=== PATIENT | male | born 1950 | race Native Hawaiian/Other Pacific Islander ===

== ENCOUNTER 2017-03-06 15:51 | Outpatient (CLI) | payer OTHER, MEDICARE ==
[2017-03-06 16:31] LABS: PLATELET COUNT 176 K/uL (142-355)
[2017-03-06 16:43] LABS: POTASSIUM 3.8 mmol/L (3.6-5.2)
== END 2017-03-06 20:29 | disposition home or self-care (01) ==
LOC: LABW 15:51
PROVIDERS: Family Medicine
DX: M79.671 Pain in right foot (principal); M79.89 Other specified soft tissue disorders; I71.4 Abdominal aortic aneurysm, without rupture; E86.0 Dehydration
CPT/HCPCS: 36415; 80053; 84550; 85027; 85651; 96366; 96374; 96375; J1885; J2930

== ENCOUNTER 2017-04-28 12:05 | Outpatient (CLI) | payer OTHER, MEDICARE | END 2017-04-28 19:43 | disposition home or self-care (01) | LOC: LABW 12:05 | DX: I71.4 Abdominal aortic aneurysm, without rupture (principal); K21.9 Gastro-esophageal reflux disease without esophagitis; R10.13 Epigastric pain; N39.0 Urinary tract infection, site not specified | CPT/HCPCS: 81000; 87086; 87088 ==

== ENCOUNTER 2017-05-26 06:28 | Outpatient (CLI) | payer OTHER, MEDICARE ==
[2017-05-26 06:56] LABS: PLATELET COUNT 244 K/uL (142-355)
[2017-05-26 07:04] LABS: POTASSIUM 4.2 mmol/L (3.6-5.2)
== END 2017-05-26 07:30 | disposition home or self-care (01) ==
LOC: LABW 06:28
PROVIDERS: Internal Medicine Nephrology
DX: N18.3 Chronic kidney disease, stage 3 (moderate) (principal)
CPT/HCPCS: 36415; 80053; 81000; 82570; 83970; 84100; 84155; 85027

== ENCOUNTER 2017-06-24 10:16 | Outpatient (CLI) | payer OTHER, MEDICARE | END 2017-06-24 11:20 | disposition home or self-care (01) | LOC: LAB 10:16 | PROVIDERS: Internal Medicine | DX: E78.00 Pure hypercholesterolemia, unspecified (principal); Z12.5 Encounter for screening for malignant neoplasm of prostate | CPT/HCPCS: 80061; 84153 ==

== ENCOUNTER 2018-01-11 14:56 | Outpatient (CLI) | payer OTHER, MEDICARE | END 2018-01-11 23:18 | disposition home or self-care (01) | LOC: CT 14:56 | DX: K43.2 Incisional hernia without obstruction or gangrene (principal) | CPT/HCPCS: 36415; 82565; 84520 ==

== ENCOUNTER 2018-04-26 06:04 | Outpatient (CLI) | payer OTHER, MEDICARE ==
[2018-04-26 06:24] LABS: PLATELET COUNT 179 K/uL (142-355)
[2018-04-26 06:36] LABS: POTASSIUM 4.3 mmol/L (3.6-5.2)
== END 2018-04-26 22:36 | disposition home or self-care (01) ==
LOC: LABW 06:04
PROVIDERS: Internal Medicine
DX: I10 Essential (primary) hypertension (principal)
CPT/HCPCS: 36415; 80053; 80061; 81000; 84443; 85027

== ENCOUNTER 2018-04-28 10:29 | Outpatient (CLI) | payer OTHER, MEDICARE | END 2018-04-28 20:08 | disposition home or self-care (01) | LOC: US 10:29 | DX: R09.89 Other specified symptoms and signs involving the circulatory and respiratory systems (principal) ==

== ENCOUNTER 2018-06-01 12:29 | Outpatient (CLI) | payer OTHER, MEDICARE ==
[2018-06-01 12:49] LABS: PLATELET COUNT 160 K/uL (142-355)
[2018-06-01 13:11] LABS: PARTIAL THROMBOPLASTIN TIME 29.1 SECONDS (24.5-33.6)
== END 2018-06-01 19:37 | disposition home or self-care (01) ==
LOC: LABW 12:29
PROVIDERS: Surgery
DX: I65.23 Occlusion and stenosis of bilateral carotid arteries (principal); Z01.810 Encounter for preprocedural cardiovascular examination; Z01.812 Encounter for preprocedural laboratory examination
CPT/HCPCS: 36415; 80048; 85027; 85610; 85730; 93005

== ENCOUNTER 2018-08-23 07:03 | Outpatient (CLI) | payer OTHER, MEDICARE ==
[2018-08-23 07:16] LABS: PLATELET COUNT 152 K/uL (142-355)
[2018-08-23 07:35] LABS: POTASSIUM 4.1 mmol/L (3.6-5.2)
== END 2018-08-23 19:10 | disposition home or self-care (01) ==
LOC: LABW 07:03
PROVIDERS: Surgery
DX: I65.23 Occlusion and stenosis of bilateral carotid arteries (principal)
CPT/HCPCS: 36415; 80048; 85027

== ENCOUNTER 2019-02-17 05:31 | Outpatient (CLI) | payer OTHER, MEDICARE ==
[2019-02-17 06:06] LABS: PLATELET COUNT 183 K/uL (142-355)
[2019-02-17 06:41] LABS: POTASSIUM 4.4 mmol/L (3.6-5.2)
== END 2019-02-17 23:34 | disposition home or self-care (01) ==
LOC: LABW 05:31
PROVIDERS: Internal Medicine
DX: I65.23 Occlusion and stenosis of bilateral carotid arteries (principal); I10 Essential (primary) hypertension
CPT/HCPCS: 36415; 80053; 80061; 81000; 84439; 84443; 85027

== ENCOUNTER 2019-10-17 07:38 | Outpatient (CLI) | payer OTHER, MEDICARE ==
[2019-10-17 07:53] LABS: PLATELET COUNT 141 K/uL (142-355)
[2019-10-17 07:55] LABS: POTASSIUM 4.5 mmol/L (3.6-5.2)
== END 2019-10-17 19:09 | disposition home or self-care (01) ==
LOC: LABW 07:38
PROVIDERS: Surgery
DX: Z01.810 Encounter for preprocedural cardiovascular examination (principal); Z01.811 Encounter for preprocedural respiratory examination; Z01.812 Encounter for preprocedural laboratory examination
CPT/HCPCS: 36415; 80048; 85027

== ENCOUNTER 2019-11-27 05:40 | Outpatient (CLI) | payer OTHER, MEDICARE ==
[2019-11-27 06:29] LABS: PLATELET COUNT 153 K/uL (142-355)
== END 2019-11-27 19:39 | disposition home or self-care (01) ==
LOC: LABW 05:40
PROVIDERS: Internal Medicine
DX: I10 Essential (primary) hypertension (principal)
CPT/HCPCS: 36415; 80053; 80061; 81000; 84439; 84443; 85027

== ENCOUNTER 2020-09-05 08:26 | Outpatient (CLI) | payer OTHER, MEDICARE ==
[2020-09-05 08:40] LABS: PLATELET COUNT 144 K/uL (142-355)
[2020-09-05 09:00] LABS: POTASSIUM 4.3 mmol/L (3.6-5.2)
== END 2020-09-05 20:03 | disposition home or self-care (01) ==
LOC: LABW 08:26
PROVIDERS: ATTEND Internal Medicine
DX: I10 Essential (primary) hypertension (principal)
CPT/HCPCS: 36415; 80053; 80061; 81000; 84439; 84443; 85027

== ENCOUNTER 2020-09-13 07:41 | Outpatient (CLI) | payer OTHER, MEDICARE | END 2020-09-13 21:10 | disposition home or self-care (01) | LOC: US 07:41 | PROVIDERS: ATTEND Internal Medicine | DX: I71.4 Abdominal aortic aneurysm, without rupture (principal) ==

== ENCOUNTER 2021-02-14 07:13 | Outpatient (CLI) | payer OTHER, MEDICARE | END 2021-02-14 19:54 | disposition home or self-care (01) | LOC: LABW 07:13 | PROVIDERS: ATTEND Nurse Practitioner Family | DX: L43.2 Lichenoid drug reaction (principal); R21 Rash and other nonspecific skin eruption | CPT/HCPCS: 36415; 86038; 86235 ==

== ENCOUNTER 2021-02-19 09:22 | Outpatient (CLI) | payer OTHER, MEDICARE | END 2021-02-19 18:57 | disposition home or self-care (01) | LOC: LAB 09:22 | PROVIDERS: ATTEND Internal Medicine | DX: U07.1 COVID-19 (principal); Z20.822 Contact with and (suspected) exposure to COVID-19 | CPT/HCPCS: 87635; G2023; U0003 ==

== ENCOUNTER 2021-02-25 13:19 | Inpatient (IN) | payer OTHER, MEDICARE ==
[~2021-02-25] VITALS: Ht 167.6 cm; Wt 83.1 kg
[2021-02-25 14:54] VITALS: BP 111/74; TEMP 99; Ht 167.6 cm; Wt 83.1 kg
--- NOTE | 2021-02-25 15:19 | NUR ---
@ 1445 PT ADMITTED TO COVID UNIT. PT ALERT AND AWAKE. ORIENTED X 4. NO ACUTE DISTRESS NOTED. PT'S SATS ON RA 82% WITH O2 @ 3-4L VIA N/C SATS UP TO 90-91%. IV SITE STARTED X 1 ATTEMPY. 20 GUAGE JELCO TO RIGHT AC. POSITIVE BLOOD RETURN. SALINE LOCKED. PT BEING ADMITTED DUE TO INABILITY TO RECEIVE OUTPATIENT INFUSION BECAUSE PT IS REQUIRING O2.
[2021-02-25 16:00] VITALS: BP 159/83; TEMP 98.5
[2021-02-25] MEDS ORDERED: LISI20TA11 PO (17:46)
[2021-02-25] MEDS ORDERED: EZALLOR SPRINKL10 MG PO (17:49)
[2021-02-25] MEDS ORDERED: HYDROCHLOROT12.5 M1 PO (17:50)
[2021-02-25] MEDS ORDERED: CILOSTAZOL PO (17:55)
--- NOTE | 2021-02-25 17:56 | NUR ---
PT TRANSPORTED TO MED-SURG FLOOR AT 1715. PT DIRECT ADMIT FROM INFUSION. PT A&O X4. NAD NOTED. O2 VIA NC @3LPM, SAME PT ON IN INFUSION CLINIIC. AWAITING ADMISSION ORDERS FROM HCP, HCP NOTIFIED AT 1745.
--- NOTE | 2021-02-25 18:57 | NUR ---
PT SITTING ON THE SIDE OF BED EATING DINNER. O2 INTACT AT 3LPM VIA NC. NAD NOTED. PT DENIES ANY PAIN OR DISCOMFORT. PT STATED "IF THE DOCTOR DON'T START ME ON SOME MEDICINE SOON, I'M GOING HOME." SPOKE WITH HCP AND ORDERS ARE CURRENTLY IN PROGRESS.
[2021-02-25 19:26] LABS: PLATELET COUNT 114 K/uL (142-355)
[2021-02-25 20:00] VITALS: BP 179/83; TEMP 98.1
[2021-02-25 20:09] LABS: POTASSIUM 4.4 mmol/L (3.6-5.2)
--- NOTE | 2021-02-25 20:30 | NUR ---
IN PT'S ROOM TO CHECK ON HIM. PT'S O2 77% ON 4 LITERS OF NASAL CANNULA AT THIS TIME. TURNED PT'S O2 UP TO 6 LITERS AND CALLED RESPIRATORY THERAPY FROM PT'S ROOM. RESPIRATORY THERAPIST ARRIVED SHORTLY AND PLACED PT ON 100% NON-REBREATHER MASK. PT'S SATS WENT UP TO HIGH 80'S TO LOW 90'S. PATIENT PLACED ON CONTINOUS O2 MONITOR AND TELE. WILL CONTINUE TO MONITOR. NAD NOTED AT THIS TIME.
[2021-02-26] VITALS (14 sets, daily range): BP systolic 107–180; BP diastolic 60–84; TEMP 99.2–101.6
--- NOTE | 2021-02-26 02:02 | NUR ---
PT WAS PLACEAD ON HF60L AND 100% FIO2 TO KEEP SPO2 UP AND TO HELP BREATHING. AFTER BEING ON HF FOR ABOUT 20 MINUTES PT SPO2 INCREASED BUT HIS WORK OF BREATHING WS THE SAME. SPOKE WITH ER DR. PENDLETON AND PT WILL BE MOVED TO PCU AND PLACED ON BIPAP.
--- NOTE | 2021-02-26 02:10 | NUR ---
SPOKE WITH RESPIRATORY THERAPISTS. PT IS NOW ON HF60L AT 100% AND STILL IS STRUGGLING TO BREATHE. PT'S SATS ARE IN THE HIGH 80'S. PT IS DIAPHORETIC AND HIS FACE IS VISIBLY FLUSHED. RESP THERAPISTS RECOMMENDS BI-PAP AT THIS TIME AND IS GOING TO SPEAK WITH THE ER DOCTOR ABOUT TRANSFERING PT TO THE UNIT.
--- NOTE | 2021-02-26 02:30 | NUR ---
PT MOVED TO PCU AT THIS TIME VIA BED. PT PLACED ON NON-BREATHER FOR TRANSFER. TWO RESPIRATORY THERAPISTS PRESENT FOR TRANSFER. NAD NOTED.
--- NOTE | 2021-02-26 02:42 | NUR ---
PATIENT VERBALLY EXPRESSING ANXIETY SINCE BEING PLACED ON BIPAP. NOTIFIED DR. FERNANDES IN ER AND VERBAL ORDER GIVEN FOR ATIVAN 1 MG IV Q 4. ORDER PLACED AT THIS TIME.WILL REASSESS FOR BIPAP TOLERANCE POST MEDICATION.
--- NOTE | 2021-02-26 03:19 | NUR ---
PT MOVED TO PCU AT 0230 PLACED ON BIPAP SETTINGS 12/6 AT 100%. SEEMS TO BE TOLERATING. WILL CONTINUE TO MONITOR.
--- NOTE | 2021-02-26 03:20 | NUR ---
PT ASSISTED TO STAND AT BEDSIDE TO USE URINAL, UNSTEADY ON FEETD ANDD INCREASED RESP NOTED. PT NOW BACK IN BED WITH BIPAP IN USE FIO2 100% WITH O2 SAT OF 95%. WILL MONITOR CLOSELY, RAILS UP, BED IN LOW POSITION. ENCOURAGED TO CALL NEEDED.
--- NOTE | 2021-02-26 04:47 | NUR ---
GAVE TYLENOL 650MG PO PRN FOR TEMP OF 101.6 AX.
--- NOTE | 2021-02-26 05:13 | NUR ---
PT CALLED FOR STAFF, NOT BIPAP TUBING NOT HOOKED TO BIPAP MASK. REATTACHED TUBING TO MASK, O2 SAT DROPPED TO 70s. RETURNED TO LOW 90s AFTER A FEW MINUTES.
--- NOTE | 2021-02-26 05:20 | NUR ---
TEMP HAS DECREASED TO 100.6 AX SINCE ADX OF TYLENOL PRN AT 0447.
[2021-02-26 06:11] LABS: PLATELET COUNT 131 K/uL (142-355)
[2021-02-26 06:40] LABS: POTASSIUM 5.1 mmol/L (3.6-5.2)
--- NOTE | 2021-02-26 07:15 | NUR ---
RESTING WITH EYES CLOSED, NO S/S OF PAIN OR DISTRESS NOTED, WILL MONITOR CLOSELY, BIPAP IN USE, VITALS BEING MONITORED.
--- NOTE | 2021-02-26 09:42 | NUR ---
PT ANXIOUS, PULLING BIPAP OFF AT INTERVALS. PT MEDICATED WITH ATIVAN 1MG SIVP PER LOENARDO LAZO LPN. PT ASSISTED TO REPOSITION IN BED.
--- NOTE | 2021-02-26 11:38 | NUR ---
CHANGE PATIENT TO AVAPS MODE WHICH BIPAP WITH A TIDAL VOLUME.
--- NOTE | 2021-02-26 12:57 | NUR ---
EKG ORDERED. PT DENIES CHEST PAIN. RESTING WITH EYES CLOSED.
--- NOTE | 2021-02-26 12:59 | NUR ---
DR WADSWORTH IN TO SEE PT.
--- NOTE | 2021-02-26 12:59 | NUR ---
PT WITH NOTED ST SEGMENT CHANGE ON ROBOTIC MACHINE TENDER PRODUCTION. REPORTED TO DR WADSWORTH. NEW ORDERS.
--- NOTE | 2021-02-26 14:08 | NUR ---
EKG REPORT TO DR WADSWORTH. 1411 TR[address] WADSWORTH. NO NEW ORDERS AT THIS TIME.
--- NOTE | 2021-02-26 15:20 | NUR ---
CONVALESENT PLASMA STARTED PER DR WYLIE.
--- NOTE | 2021-02-26 16:30 | NUR ---
PLASMA COMPLETED WITH NO REACTION.PT ASSISTED TO USE URINAL. 200 ML ROBE URINE.
--- NOTE | 2021-02-26 17:00 | NUR ---
PT DRANK WATER WITH BIPAP OFF. O2 SATS REMAINED 90%.
--- NOTE | 2021-02-26 20:40 | NUR ---
PATIENT NOTED VERY ANXIOUS PULLING OFF HIS BIPAP MASK. PATIENT REDIRECTED BUT HE STATED HE NEEDED TO COUGH SOMETHING UP. THIS NURSE TOOK HIS BIPAP MASK OFF AND GAVE HIM A CUP TO SPIT IN LARGE THICK GREEN MUCOUS WITH SCANT AMOUNT OF BLOOD WAS NOTED AND COLLECTED AND SENT TO THE LAB.
--- NOTE | 2021-02-26 20:58 | NUR ---
GEODON 10MG GIVEN IM TO THE LEFT SHOULDER.
--- NOTE | 2021-02-26 22:36 | NUR ---
PATIENT IS STILL NOTED VERY ANXIOUS AND PULLING AT HIS MASK DESPITE MULTIPLE REDIRECTIONS, HE CONTINUES WITH PULLING AT THE MASK. SPO2 DROPS SIGNIFICANTLY DOWN IN TO THE 70'S. PATIENT REPOSITIONED UP IN THE BED AND BIPAP MASK ADJUSTED. [id number]. WHEN CALM THE PATIENT SPO2 COME UP TO 92%.
--- NOTE | 2021-02-26 22:52 | NUR ---
PATIENT CONTINUALLY TAKES OFF MASK. PATIENT IS BARELY ABLE TO FOLOW INSTRUCTIONS. ALL PO MEICATIONS WERE HELD DUE TO ASPIRATION PRECAUTIONS
--- NOTE | 2021-02-26 23:13 | NUR ---
PATIENT CONTINUES PULLING OFF HIS MASK AND TURNING ON HIS STOMACH DESPITE REDIRECTION. PATIENT ALSO IS TRYING TO GET OUT OF BED. WHEN HE TAKES OF HIS MASK HIS WORKFORCE OF BREATHING INCREASES WITH RESPIRATIONS IN THE 50'S AND SPO2 70%. ABG ORDERED AT THIS TIME.
--- NOTE | 2021-02-26 23:23 | NUR ---
CALL TO UPDATE ON PATIENT. PATIENT CONTINUES TO PULL OFF MASK AND DESATS QUICKLY TO 70%. TOLD PATIENT HAS RECEIVED ATIVAN 2 MG X1 IV PUSH, GEODON 10 MG X 1 IV PUSH AND MORPHINE 1 MG X1 IV PUSH. MEDICATIONS HAVE NOT HELPED HIM CALM DOWN AND LET BIPAP WORK. NEW ORDER WAS GIVEN FOR VALIUM 5 MG IV PUSH X1.
--- NOTE | 2021-02-26 23:24 | NUR ---
RESPIRATORY AT BED SIDE, ABG OBTAINED. PATIENT STILL RESTLESS.
[2021-02-27] VITALS (11 sets, daily range): BP systolic 66–140; BP diastolic 21–76; TEMP 98.1–101
--- NOTE | 2021-02-27 02:08 | NUR ---
PATIENT BECAME AGGITATED AND PULLED HIS IV SITE OUT. PATIENT NOW HAS TWO IV SITES. ONE TO THE 20 IN THE LF FORE ARM AND 20 IN THE RIGHT AC, BOTH SITE ARE CLEAN DRY AND INTACT
--- NOTE | 2021-02-27 02:50 | NUR ---
CALLED CRITICAL LAB [facility] TO --TROPONIN 3.38 UP FROM 1.17. NEW ORDER GIVEN FOR ASPIRIN 162 MG PO DAILY. UPDATED ABOUT PATIENT CONTINUING TO TAKE BIPAP MASK OFF AND CLIMBING OVER THE VENT DESPITE REDIRECTION. CONCERN FOR PATIENT SAFETY DESPITE AT EYE SITE. NEW ORDER GIVEN FOR PATIENT TO BE PLACED ON SOFT BILATERAL WRIST RESTRAINTS. SOFT WRIST RESTRAINTS PLACED AT THIS TIME.
--- NOTE | 2021-02-27 02:55 | NUR ---
PATIENT SPIKED A FEVER AND IV TYANOL AND COOL CLOTHES WERE APPLIED
[2021-02-27 04:05] LABS: PLATELET COUNT 151 K/uL (142-355)
--- NOTE | 2021-02-27 04:15 | NUR ---
PATIENTS DAUGHTER NOTIFIED ABOUT PATIENT NEEDING RESTRAINTS.
[2021-02-27 04:40] LABS: POTASSIUM 5.2 mmol/L (3.6-5.2)
--- NOTE | 2021-02-27 12:40 | NUR ---
PT MOVED TO ICU2 VIA BED FOR INTUBATION. MD, RT, DOG LICENSE OFFICER SUPERVISOR, AND NURSING STAFF AT BEDSIDE. WITH BIPAP IN PLACE. 1250 LIDOCAINE 10MG, VERSED 4MG GIVEN, UWT259 MG GIVEN IVP. 1252 BIPAP REMOVED 1253 ET TUBE 6.5 AND 22 AT LIP WITH COLOR CHANGE. BAGGING STARTED PER RT. 1254 PEEP 10, TV 475, RATE 20, FI02 100% 1308VERSED 0.02MG/KG CONTINOUS INFUSING VIA IV 1310FENTANYL DRIP 50MCG/HR CONTINOUS IV INFUSING 1313 18FR NGT TO RT NARE 1335 VERSED INCREASED 0.04MG/KG 1350 VERSED INCREASED TO 0.06 MG/KG
--- NOTE | 2021-02-27 16:14 | NUR ---
1600 NEW VENT SIMV MODE TV, 550, RATE 20, PEEP 10, PSSR SUPPORT 10. FIO2 100%.
--- NOTE | 2021-02-27 20:24 | NUR ---
PATIENT WAS PLACED ON LEVOPHED DUE TO A CHANGE IN STAUS IN BLOOD PRESSURE. MD NOTIFIED AND CARDIACS DRAWN.
[2021-02-28 00:01] VITALS: BP 118/48; TEMP 98.1
--- NOTE | 2021-02-28 00:29 | NUR ---
PATIENTS CURRENT BLOOD PRESSURE 119/53 WITH PERLA 76. CURRENT HR 52. SPO2 97.
--- NOTE | 2021-02-28 00:30 | NUR ---
LEVOPHED AT 10 MCG/MIN WITH CURRENT BLOOD PRESSURE 119/53 WITH PERLA 76.
--- NOTE | 2021-02-28 00:30 | NUR ---
CURRENT LEVOPHED RUNNING AT 10 MCG/MIN.
[2021-02-28 01:00] VITALS: BP 122/43
[2021-02-28 02:00] VITALS: BP 125/47
[2021-02-28 03:00] VITALS: BP 127/49
--- NOTE | 2021-02-28 03:15 | NUR ---
LAB REPORTED OUT CRITICAL TROPONIN OF 1.20. CARDIAC ENZYMES TRENDING DOWN AT THIS TIME. MADE AWARE.
--- NOTE | 2021-02-28 03:24 | NUR ---
LEVOPHED TITRATED DOWN FROM 10 MCG/MIN TO 8 MCG/MIN CURRENT B/P 118/50 WITH PERLA 76.
[2021-02-28 03:30] LABS: PLATELET COUNT 271 K/uL (142-355)
[2021-02-28 03:46] LABS: POTASSIUM 5.2 mmol/L (3.6-5.2)
[2021-02-28 04:00] VITALS: BP 118/50; TEMP 97.6
[2021-02-28 05:00] VITALS: BP 135/49
--- NOTE | 2021-02-28 05:18 | NUR ---
RT AT THE BEDSIDE DOING ABG. PATIENT NOTED WITH EYES OPEN AND ATTEMPTING TO COUGH OVER THE VENT. VERSED INCREASED TO 6 ML AND FENTANYL INCREASED TO 100 MCG/H. PATIENT NOTED RESTING MORE QUIETLY AT THIS TIME.
--- NOTE | 2021-02-28 05:58 | NUR ---
PATIENT IS RESTING COMFORTABLLY ON THE VENT. PATIENTS LEVOPHED HAS NOT BEEN TITRATED. PATIENTS BLOOD PRESSURE IS STABLE
--- NOTE | 2021-02-28 13:25 | NUR ---
PT OPENS EYES AND TURNS HEAD. MD NOTIFIED AND NEW ORDER GIVEN TO START VECURONIUM IV PER PROTOCOL.
--- NOTE | 2021-02-28 14:51 | NUR ---
ECHO DONE PER MD ORDERS
--- NOTE | 2021-02-28 15:00 | NUR ---
UPDATE GIVEN TO DAUGHTER AT THIS TIME.
--- NOTE | 2021-02-28 21:34 | NUR ---
SHIFT ASSESSMENT COMPLETED. PATIENT IS RESTING QUIETLY. HR REMAINS IN THE 40'S-50'S. PATIENT IS ON LEVOPHED AT 8MCG/MIN. VERSED IS GOING AT 6 ML/HR. PICC LINE TO THE LEFT UPPER IS PATENT AND INTACT.
--- NOTE | 2021-02-28 23:42 | NUR ---
ORAL CARE AND EYE CARE DONE. PATIENT SUCTIONED.
[2021-03-01] VITALS (13 sets, daily range): BP systolic 104–130; BP diastolic 37–69; TEMP 98.4–99.2
--- NOTE | 2021-03-01 04:27 | NUR ---
PATIENT NOTED BITING DOWN ON TUBE. PATIENT ATTEMPTED TO WAKE UP. PATIENT GIVEN A BOLUS OF VERSED AND FENTANYL INCREASED TO 100 MCG/HR. PATIENT NOTED RESTING COMFORTABLY AFTER BOLUS. WILL CONTINUE TO MONITOR.
[2021-03-01 05:06] LABS: PLATELET COUNT 210 K/uL (142-355)
[2021-03-01 05:29] LABS: POTASSIUM 5.7 mmol/L (3.6-5.2)
--- NOTE | 2021-03-01 05:58 | NUR ---
PATIENT LEVOPHED STOPPED AT THIS TIME WITH BLOOD PRESSURE READING 155/76.
--- NOTE | 2021-03-01 07:49 | NUR ---
ET TUBE MOVED TO THE LEFT SIDE OF MOUTH.
--- NOTE | 2021-03-01 12:30 | NUR ---
UPDATE GIVEN TO VIA PHONE AT THIS TIME.
--- NOTE | 2021-03-01 12:35 | NUR ---
RESP ATTEMPTED AGAIN ABG WITHOUT SUCCESS. NOTIFIED
--- NOTE | 2021-03-01 13:30 | NUR ---
PCT ATTEMPTED TO GIVE PT BED BATH BUT PT NOT TOLERATING AT THIS TIME. PT AWAKE DESPITE SEDATION. UNABLE TO INCREASE SEDATION D/T BP AND MAP OF 60. WILL HOLD OFF ON BEDBATH AT THIS TIME.
--- NOTE | 2021-03-01 13:48 | NUR ---
PT'S MAP NOTED TO BE 60 SO LEVOPHED INCREASED TO 10MCG BP 110/70 WILL CONT TO MONITOR. INFORMED .
--- NOTE | 2021-03-01 14:15 | NUR ---
MAP 80 WITH BP 125/44 SO LEVOPHED DECREASED TO 8MCG.
--- NOTE | 2021-03-01 14:30 | NUR ---
DR WADSWORTH AT MAKING ROUNDS. INFOMRED HER THAT ABG STILL UNSUCCESSFUL AT THIS TIME. NO NEW ORDERS REC'D
--- NOTE | 2021-03-01 16:07 | NUR ---
DECREASED FIO2 FROM 100% TO 90%. SPO2 BETWEEN 94-95%. PT LACI WELL. WILL CONTINUE TO MONITOR.
--- NOTE | 2021-03-01 20:00 | NUR ---
RESTING WITH EYES CLOSED, NO S/S OF PAIN OR DISTRESS NOTED, RESP RATE NONLABORED ON VENT, VITALS BEING MONITORED, 18F RON PATENT DRAINING TO BEDSIDE, PICC INTACT TO L UPPER ARM, IV SITES INTACT, NG TUBE INTACT TO R NARE, TRAIN OF FOUR 4/4 TWITCHES AT 10 BUT STRONG TWITCHES AT 15. FEET AND HANDS ELEVATED ON PILLOWS, REPOSITIONED IN BED. MOUTH CARE COMPLETED. WILL MONITOR, RAILS UP, BED IN LOW POSITION.
--- NOTE | 2021-03-01 20:55 | NUR ---
PT'S NG TUBE ASSESSED AND INSERTED 30ML OF AIR AND AUSCULTATED, PLACEMENT CONFIRMED AND 30ML OF AIR REMOVED, NG TUBE FLUSHED WITH FREE WATER OF 60ML, PM MEDICATIONS CRUSHED AND GIVEN IN 40ML OF FREE WATER, AND FLUSHED WITH 60ML OF FREE WATER. PATIENT TOLERATED WELL.
[2021-03-02] VITALS (24 sets, daily range): BP systolic 120–141; BP diastolic 53–61; TEMP 98.5–99.6
--- NOTE | 2021-03-02 00:05 | NUR ---
TRAIN OF FOUR 4/4 TWITCHES AT 15.
--- NOTE | 2021-03-02 00:08 | NUR ---
RESTING IN BED WITH EYES CLOSED, NO S/S OF PAIN OR DISTRESS NOTED, VITALS BEING MONITORED, RESP RATE NONLABORED ON VENT, DRIPS ONGOING, VITALS BEING MONITORED.
--- NOTE | 2021-03-02 03:25 | NUR ---
PROVIDED EXTENSIVE ORAL CARE AND SUCTIONED PATIENT. PATIENT'S EYES OPENED AND ATTEMPTED RAISE HANDS, NURSE STOPPED WITH ORAL CARE, PT THEN CALMED AND EYES CLOSED.
--- NOTE | 2021-03-02 04:00 | NUR ---
TRAIN OF FOUR 4/4 TWITCHES AT 15.
--- NOTE | 2021-03-02 04:30 | NUR ---
RESTING WITH EYES CLOSED WITH NO S/S OF PAIN OR DISTRESS NOTED, RESP RATE NONLABORED, REMAINS ON VENT, RON PATENT, VITALS BEING MONITORED, NG TUBE INTACT TO R NARE TO LIS, REPOSITIONED TO L SIDE IN BED, FEET ELEVATED OFF OF BED. WILL MONITOR, RAILS UP, BED IN LOW POSITION.
[2021-03-02 05:17] LABS: PLATELET COUNT 185 K/uL (142-355)
[2021-03-02 05:51] LABS: POTASSIUM 4.6 mmol/L (3.6-5.2)
--- NOTE | 2021-03-02 06:00 | NUR ---
PATIENT WEIGHED THIS AM WITH 3 PILLOWS AND A SHEET ON BED.
--- NOTE | 2021-03-02 08:00 | NUR ---
UPDATE GIVEN TO PT'S VIA PHONE
--- NOTE | 2021-03-02 08:36 | NUR ---
DECREASED FIO2 TO 80%. SPO2 AT 96%
--- NOTE | 2021-03-02 10:00 | NUR ---
LABS REPORTED TO MD AT THIS TIME ALONG WITH UPDATE FROM PRIOR SHIFT. NO NEW ORDERS REC'D AT THIS TIME.
--- NOTE | 2021-03-02 11:08 | NUR ---
RESP AT BS OBTAINING ABG AT THIS TIME.
--- NOTE | 2021-03-02 11:13 | NUR ---
DECREASED FIO2 TO 70% POST ABG.
--- NOTE | 2021-03-02 11:17 | NUR ---
ABG RESULTS REPORTED TO DR WADSWORTH. FIO2 DECREASED TO 70% PER RESP. INFOMRED OF CHANGES.
--- NOTE | 2021-03-02 14:51 | NUR ---
LEVOPHED DECREASED TO 6MCG AT THIS TIME R/T MAP OF 80. WILL CONT TO MONITOR.
--- NOTE | 2021-03-02 15:19 | NUR ---
DECREASED FIO2 TO 65%
--- NOTE | 2021-03-02 16:30 | NUR ---
PT'S BP 133/58 WITH MAP OF 80. LEVOPHED DECREASED TO 5MCG AT THIS TIME.
--- NOTE | 2021-03-02 21:39 | NUR ---
PT WITH 15 ML OF GASTRIC RESIDUAL. PT IN HIGH FOWLERS POSITION. PT GIVEN ATORVASTATIN IN 100 ML OF FREE WATER. NAD NOTED. WILL CONTINUE TO MONITOR.
--- NOTE | 2021-03-02 22:00 | NUR ---
RESTING WITH EYES CLOSED, NO DISTRESS NOTED REMAINS ON VENT, VITALS STABLE, RON PATENT, NG TUBE INTACT. MOUTH CARE PROVIDED, HANDS AND FEET ELEVATED ON PILLOWS, HOB ELEVATED. PT DID OPEN EYES SLIGHTY, PICC INTACT TO L UPPER ARM, WILL MONITOR, RAILS UP.
--- NOTE | 2021-03-02 23:45 | NUR ---
b/p and vitals stable, decreased levophed to 3mcg/min. will monitor closely.
[2021-03-03] VITALS (25 sets, daily range): BP systolic 94–176; BP diastolic 41–79; TEMP 98.7–100.2
--- NOTE | 2021-03-03 00:54 | NUR ---
PT RESTING IN HIGH FOWLERS WITH EYES CLOSED. NG TUBE IS INTACT AND TURNED BACK ON LOW INTERMITTENT SUCTION. NAD NOTED. WILL CONTINUE TO MONITOR.
--- NOTE | 2021-03-03 03:33 | NUR ---
RESPIRATORY THERAPIST AT BEDSIDE GIVING NEB TREATMENT. NAD NOTED.
--- NOTE | 2021-03-03 05:15 | NUR ---
PT PICKING UP HANDS AND EYES OPEN BECOMING DISTRESSED, PULSE RATE INCREASED TO 110-120s. INCREASED VECURONIUM TO 0.4MCG. 0525 INCREASED FENTANYL DRIP TO 3ML/HR. WILL MONITOR, RESP AND NURSING STAFF AT BEDSIDE.
--- NOTE | 2021-03-03 05:43 | NUR ---
PT WITH LESS THAN 3 ML OF GASTRIC RESIDUAL. PLACED IN HIGH FOLWERS AND GIVEN 100 ML OF FREE WATER VIA NG TUBE. NAD NOTED.
--- NOTE | 2021-03-03 06:00 | NUR ---
increased vecuronium to 0.7mcg/kg/min, versed at 0.1mg/kg/h will moinitor. pt awake moving at times resp effort increased o2 sat in 80S.
--- NOTE | 2021-03-03 06:10 | NUR ---
NEW TELEPHONE ORDER FORM DR. PAUL TO START DIPRIVAN DRIP TITRATE PER PROTOCOL. R&V.
--- NOTE | 2021-03-03 06:15 | NUR ---
DIPRIVAN DRIP AT 10MCG/KG/MIN, WILL MONITOR FOR RESULTS. PT STILL OPENING EYES A TIMES HEART RATE REMAINS ELEVATED O2 SAT REMAINS 86-88% ON VENT. 0610 RESP RATE 16 O2 SAT 87%, B/P 155/100, PULSE RATE 134. RESPIRATORY AND NURSING STAFF AT BEDSIDE ATTEMPTED TO CALM PT.
--- NOTE | 2021-03-03 06:25 | NUR ---
EKG COMPLETED AT PER RESPIRATORY FOR CHANGE IN RATE. EKG SHOWS A-FIB, REPORTED TO DR. PAUL AT THIS TIME.
--- NOTE | 2021-03-03 06:28 | NUR ---
ORDER FROM DR. PAUL TO GIVE LOPRESSOR 5MG IVP X 1 NOW THEN MAY REPEAT IN 5 MINUTES FOR HEART RATE OF 110-120 T.0. R&V. 0630 LOPRESSOR 5MG GIVEN IVP PER ORDER AFIB NOTED ON MONITOR RATE 120-130s
--- NOTE | 2021-03-03 06:40 | NUR ---
dipravan drip increased to 15mcg at this time, staff remains at bedside and monitoring pt.
--- NOTE | 2021-03-03 06:45 | NUR ---
HEART RATE NOW IN 80s SINCE LOPRESSOR GIVEN IV. WILL MONITOR.
--- NOTE | 2021-03-03 07:30 | NUR ---
RESPIRATORY THERAPY HERE DOING RESPIRATORY TREATMENT. RESTING WITH EYES CLOSED. Pt. ON THE VENT. RON CATHETER INTACT.
--- NOTE | 2021-03-03 08:10 | NUR ---
SHIFT ASSESSMENT COMPLETED. ET 6.5, 22 AT THE LIP WITH VENT SETTINGS TV 550 ML, RATE 24, PEEP 10, PS 10, FIO2 85%. NO ACUTE DISTRESS NOTED.
[2021-03-03 08:51] LABS: PLATELET COUNT 177 K/uL (142-355)
[2021-03-03 09:08] LABS: POTASSIUM 4.9 mmol/L (3.6-5.2)
--- NOTE | 2021-03-03 09:45 | NUR ---
RESTING IN BED. DR. WADSWORTH HERE TO VISIT. NO NEW ORDERS. WILL REVIEW LABS WITH CRITICAL CHLORIDE.
--- NOTE | 2021-03-03 10:00 | NUR ---
DAUGHTER ASHLI MARKS CALL AND REPORT GIVEN.
--- NOTE | 2021-03-03 11:17 | NUR ---
REDUCED FIO2 TO 90% PER GIANLUCA CORTES
--- NOTE | 2021-03-03 13:35 | NUR ---
BLOOD PRESSURE DECREASED TO NOTIFIED DR. WADSWORTH. RESTART LEVOPHED DRIP 8MCG/MIN.
--- NOTE | 2021-03-03 14:20 | NUR ---
LEVOPHED DECREASED TO 6MCG/MIN DUE TO INCREASE IN BLOOD PRESSURE.
--- NOTE | 2021-03-03 14:28 | NUR ---
DECREASED LEVOPHED DRIP TO 4MCG/MIN.
--- NOTE | 2021-03-03 14:37 | NUR ---
INCREASED LEVOPHED DRIP TO 6 MCG/MIN.
--- NOTE | 2021-03-03 15:30 | NUR ---
DECREASED PT. FIO2 TO 85% TOSEE HOW HE TOLERATES. WILL CONTINUE TO MONIOTR.
--- NOTE | 2021-03-03 17:35 | NUR ---
DR. WADSWORTH CALLED ORDER TO GIVE FREE WATER 200CC Q4HRS DUE TO EVELATED SODIUM.
--- NOTE | 2021-03-03 18:42 | NUR ---
BLOOD PRESSURE REMAIN STABLE
--- NOTE | 2021-03-03 23:11 | NUR ---
SHIFT ASSESSMENT COMPLETED. PATIENT ON THE VENT. CONTINUE ON DRIPS
[2021-03-04] VITALS (12 sets, daily range): BP systolic 94–144; BP diastolic 37–74; TEMP 98.8–100.1
[2021-03-04 05:37] LABS: PLATELET COUNT 280 K/uL (142-355)
--- NOTE | 2021-03-04 05:45 | NUR ---
ON VECERONIUM TRAIN OF FOURS DONE PATIENT 4/4 TWITCHES AT 80 Ma. PATIENT VEC STOPPED AT THIS TIME. WILL REASSESS IN 1 HR.
[2021-03-04 06:01] LABS: POTASSIUM 5.4 mmol/L (3.6-5.2)
--- NOTE | 2021-03-04 08:20 | NUR ---
PT'S TROPONIN LEVEL & LABS CALLED TO DR WADSWORTH, COPY OF EKG SENT TO HER. WILL CONTACT DR HERNANDEZ. PT RESTING QUIETLY AT THIS TIME.
--- NOTE | 2021-03-04 08:33 | NUR ---
PT RECEIVING BREATHING TX WITHOUT DIFFICULTY
--- NOTE | 2021-03-04 10:20 | NUR ---
DR WADSWORTH & DR ROWE IN TO SEE PT. REVIEWING LABS.
--- NOTE | 2021-03-04 14:49 | NUR ---
PT MEDICATED WITH KAYEXELATE [address] ORDERS VIA NGT.
--- NOTE | 2021-03-04 15:00 | NUR ---
PT WITH O2 SATS DECREASED TO 85%. P[T SUCTIONED . O2 SATS UP TO 91 %.
--- NOTE | 2021-03-04 15:56 | NUR ---
FIO2 INCREASED TO 100% @ THIS TIME DUE TO SpO2 OF 83%. Pt SpO2 RETURNED TO 94% ON 100% FIO2. DASHA HOME APPLIANCE TECH
--- NOTE | 2021-03-04 16:00 | NUR ---
PT MEDICATED WITH TYLENOL 1000MG IV PER DR'S ORDERS FOR ELEVATED TEMP.
--- NOTE | 2021-03-04 17:06 | NUR ---
PT WITH DEC. O2 SAT. SUCTIONED PETE & DEEP SUCTION. BROWNISH TINGED SPUTUM. RT AT BS, ET TUBE CABRERA CHANGED. O2 SATS UP TO 96%.
--- NOTE | 2021-03-04 17:40 | NUR ---
DR WADSWORTH IN TO SEE PT, NEW ORDERS.
--- NOTE | 2021-03-04 20:13 | NUR ---
SHIFT ASSESSMENT COMPLETED. PATIENT REMAINS ON VENT SETTINGS SIMV TV 550 ML, RATE 24, PEEP 10, PS 10, FIO2 100%. ET 6.5 AT 23 AT THE LIP. LEVOPHED 0.08 MCG/MIN, VERSED AT 10 ML/HR, NS W/ BICARB AT 50 ML/HR, PROPOFOL 20 MCG/HR,FENTANYL AT 150 MCG/HR. PATIENT ALSO NOTED DESATING IN THE 70'S. PATIENT IN LINE SUCTIONED AND LAVAGED BUT NOTHING WAS NOTED ON RETURN. RESIPRATORY CALLED BUT THEY WERE IN THE ER. PATIENT BAGGED FOR SEVERAL MINUTES AND THEN PLACED BACK ON VENT WITH SPO2 INCREASING TO 97%/
[2021-03-05] VITALS (22 sets, daily range): BP systolic 72–138; BP diastolic 42–78; TEMP 99.5–100.5
--- NOTE | 2021-03-05 00:25 | NUR ---
CURRENT BLOOD PRESSURE READING 150/74 WITH MAP OF 97. LEVOPHED DECREASED FROM 5MCG/MIN TO 3 MCG/MIN. WILL MONITOR BLOOD PRESSURE CLOSELY AND ADJUST ACCORDINGLY.
--- NOTE | 2021-03-05 02:18 | NUR ---
ORAL CARE DONE AT THIS TIME.
--- NOTE | 2021-03-05 04:27 | NUR ---
LEVOPHED DECREASED TO 3 MG/HR WITH B/P 126/68 WITH PERLA 81.
[2021-03-05 05:50] LABS: PLATELET COUNT 206 K/uL (142-355)
[2021-03-05 06:09] LABS: POTASSIUM 5.3 mmol/L (3.6-5.2)
--- NOTE | 2021-03-05 12:32 | NUR ---
DECREASED FIO2 TO 90%. SPO2 AT 93%
--- NOTE | 2021-03-05 13:00 | NUR ---
PT'S CALLED AND REQUESTED SERVICES TO BE CHANGED TO DR DE LEON AT THIS TIME. DR KOCH INFORMED AND OK [facility] CHANGES AT THIS TIME.
--- NOTE | 2021-03-05 15:34 | NUR ---
INCREASED RR TO [address] DE LEON.
--- NOTE | 2021-03-05 16:41 | NUR ---
LEVOPHED INCREASED TO 8 MCG DT BP OF 88/52 MAP 64
--- NOTE | 2021-03-05 17:30 | NUR ---
FAMILY CALLED BACK AND STATED DR BANUELOS CALLED BACK AND STATED DERMITIS
--- NOTE | 2021-03-05 17:55 | NUR ---
DR DE LEON HERE NEW ORDERS REC'D TO DECREASE LEVOPHED TO 3MCG AT THIS TIME. BP 87/49 MAP 61 1800 72/42 MAP 52 LEVOPHED INCREASED BACK UP 6MCG 1820 BP 123/57 MAP 77 WILL CONT TO MONITOR
--- NOTE | 2021-03-05 18:47 | NUR ---
DECREASED FIO2 TO 80% POST ABG. SPO2 AT 92-93%. WILL CONTINUE TO MONITOR AND WEAN TOLERATED.
--- NOTE | 2021-03-05 20:30 | NUR ---
PT RESTING IN HIGH FOWLERS WITH HIS EYES CLOSED. REMAINS ON VENT. DRIPS INFUSING. NO ACUTE SIGNS OF DISTRESS OR PAIN. WILL CONTINUE TO MONITOR.
--- NOTE | 2021-03-05 22:30 | NUR ---
DECREASED LEVOPHED DRIP TO 4 MCG/MIN, B/P STABLE WILL MONITOR CLOSELY.
[2021-03-06] VITALS (14 sets, daily range): BP systolic 110–142; BP diastolic 57–75; TEMP 99.2–99.7
--- NOTE | 2021-03-06 00:01 | NUR ---
INCREASED VECURONIUM DRIP TO 0.1 DUE TO TRAIN OF FOUR 4/4 TWITCHES AT 15MA. RESTING WITH EYES CLOSED, NO S/S OF PAIN OR DISTRESS NOTED, VITALS BEING MONITORED, WILL MONITOR CLOSELY, RAILS UP, BED IN LOW POSITION.
--- NOTE | 2021-03-06 00:30 | NUR ---
LESS THAN 5 ML OF GASTRIC RESIDUAL NOTED. HALF A CAN OF NEPRO WITH 120 ML OF WATER GIVEN. FLUSHED BEFORE AND AFTER WITH 40 ML OF WATER. PT IN HIGH FOWLERS. TOLERATED PROCEDURE WELL. NAD NOTED.
--- NOTE | 2021-03-06 02:25 | NUR ---
MOUTH CARE PROVIDED TO PATIENT. MOUTH AND LIPS MOISTURIZED. NAD NOTED. PT REMAINS ON THE VENT. WILL CONTINUE TO MONITOR.
--- NOTE | 2021-03-06 03:15 | NUR ---
DECREASED LEVOPHED DRIP TO 2MCG AT THIS TIME, WILL MONITOR B/P AND OTHER VITALS CLOSELY.
[2021-03-06 03:57] LABS: PLATELET COUNT 170 K/uL (142-355)
--- NOTE | 2021-03-06 04:30 | NUR ---
TRAIN OF FOUR, 4 LIGHT TWITCHES NOTED WILL MONITOR.
[2021-03-06 04:34] LABS: POTASSIUM 5.2 mmol/L (3.6-5.2)
--- NOTE | 2021-03-06 04:40 | NUR ---
PT REMAINS ON VENT. RESTING QUIETLY WITH HIS EYES OPEN. RESPIRATIONS ARE EVEN AND UNLABORED. NAD NOTED.
--- NOTE | 2021-03-06 06:15 | NUR ---
PT REPOSITIONED ON RIGHT SIDE WITH HIS LEGS AND HANDS ELEVATED. NAD NOTED.
--- NOTE | 2021-03-06 07:00 | NUR ---
ORDERS REC'D FROM DR DE LEON VIA PHONE TO DC IVF'S WITH BICAR[facility]. ALSO ORDERS REC'D TO WEAN LEVOPHED AND VENT PER RESP IF PT TOELRATES.
--- NOTE | 2021-03-06 07:30 | NUR ---
NEW ORDERS REC'D TO GIVE KETAMINE 50MG BOLUS IV AND THEN START KETAMINE DRIP PER PROTOCOL
--- NOTE | 2021-03-06 07:30 | NUR ---
IVF'S DC'D PER MD ORDERS AT THIS TIME.
--- NOTE | 2021-03-06 07:59 | NUR ---
ET TUBE MOVED TO RIGHT SIDE OF PT MOUTH.
--- NOTE | 2021-03-06 08:00 | NUR ---
DECREASED FENTYL TO 2ML/HR 0830 ALEISHA STORY'D AT THIS TIME
--- NOTE | 2021-03-06 08:00 | NUR ---
FENTANYL DECREASED TO 2ML/HR BY CURT TRACEY RN AT THIS TIME
--- NOTE | 2021-03-06 08:08 | NUR ---
FENTANYL STOPPED AT THIS TIME BY CURT TRACEY RN PER MD ORDERS.
--- NOTE | 2021-03-06 08:10 | NUR ---
KETAMINE BOLUS GIVEN BY CURT TRACEY RN PER ORDERS AND PER BERTHA BANUELOS, PHD
--- NOTE | 2021-03-06 08:25 | NUR ---
KETAMINE DRIP STARTED AT THIS TIME BY CURT TRACEY RN PER PROTOCOL.
--- NOTE | 2021-03-06 08:45 | NUR ---
DR SCHERER CONSULTED ABOUT CENTRAL LINE PLACMENT.
--- NOTE | 2021-03-06 08:59 | NUR ---
DR SCHERER CALLED BACK AND STATED THAT HE WOULD COME AROUND LUNCH TO DO LINE P;ACMENT
--- NOTE | 2021-03-06 09:25 | NUR ---
VEC INCREASED TO 0.2MCG/KG/MIN . LEVOPHED DC'D AT THIS TIME. WILL CONT MONITOR.
--- NOTE | 2021-03-06 10:30 | NUR ---
SPOKE WITH BERTHA IN PHARM CONCERNING ALL MEDS BEING MIXED IN D5W PER MD ORDERS.
--- NOTE | 2021-03-06 11:00 | NUR ---
DR ADAMS HERE MAKING ROUNDS AT THIS TIME.
--- NOTE | 2021-03-06 11:19 | NUR ---
KETAMINE INCREASED TO 0.35MG/KG/HR PER MD
--- NOTE | 2021-03-06 11:45 | NUR ---
DR SCHERER HERE AT THIS TIME FOR CENTRAL LINE PLACMENT. CENTRAL LINE PLACED INTO RT IJ PER STERILE TECHNIQUE. PT TOLERATED LINE PLACEMNET WELL. FAMILY INFORMED.
--- NOTE | 2021-03-06 12:15 | NUR ---
MUMTAZ FROM XRAY AT BS TO PERFORM ULTRASOUND OF LEFT ARM.PICC LINE.
--- NOTE | 2021-03-06 15:00 | NUR ---
VANE DANIELS AND ZAHIDA APPLIED TO BLE PER MD ORDERS.
--- NOTE | 2021-03-06 22:01 | NUR ---
PATIENT GIVEN A GASTRIC LAVAGE WITH 1000 ML OF WATER AND CONNECTED BACK TO LIWS. APPROX. 600 ML OF HONEY COLORED FLUID NOTED ON RETURN.
--- NOTE | 2021-03-06 23:27 | NUR ---
NOTIFIED THAT BLEEDING WAS NOTED AROUND CENTRAL LINE PLACEMENT AND 4X4 WERE REINFORCED BUT GAUZE STILL SATURATED. ORDER GIVEN TO PUT PRESSURE FOR 10 MINUTES AND REINFORCE WITH 4X4.
[2021-03-07 04:57] LABS: PLATELET COUNT 133 K/uL (142-355)
[2021-03-07 05:28] LABS: POTASSIUM 5.4 mmol/L (3.6-5.2)
--- NOTE | 2021-03-07 09:14 | NUR ---
INCREASED FIO2 TO 75% FROM 65%. SPO2 IS IN 88% it is now 90%.
[2021-03-07 18:08] LABS: POTASSIUM 7.1 mmol/L (3.6-5.2)
--- NOTE | 2021-03-07 19:55 | NUR ---
LATE ENTRIES: 175 ATROPINE GIVEN, CPR STARTED AND ARTIFICIAL VENTILATION PROVIDED BY RESPIRATORY VIA AMBUBAG. DR. DE LEON AT BEDSIDE. 175 1ST EPINEPHRINE 1 AMP ADMINISTERED VIA IV, CPR CONTINUED AND VENTILATION PROVIDED BY RESPIRATORY VIA AMBUBAG 175 LIDOCAINE 1 AMP VIA IV 175 CPR PAUSED TO ASSESS FOR PULSE, PT ASYSTOLE 175 CPR RESUMED AND RESPIRATORY CONTINUES TO PROVIDE ARTIFICIAL VENTILATON VIA AMBUBAG. CALCIUM CHLORIDE 1 AMP ADMINISTERED VIA IVP 175 D5 BOLUSING VIA IV WITHOUT DIFFICULTY 175 2ND EPINEPHRINE ADMINISTERED VIA IVP, CPR REMAINS IN EFFECT AND VENTILATION PROVIDED BY RESPIRATORY VIA AMBUBAG 1800 SODIUM BICARB ADMINISTERED VIA IVP WHILE CPR CONTINUES AND VENTILATION VIA AMBUBAG 180 CPR PAUSED TO ASSESS FOR A PULSE, PT REMAINS IN ASYSTOLE. CPR AND VENTILATION VIA AMBUBAG RESUMED 180 3RD EPINEPHRINE 1 AMP GIVEN VIA IVP, VENTILATION AND CPR CONTINUED 180 CPR AND VENTILATION PAUSED, PT ASSESSED FOR PULSE, SHOCK DELIVERED AT 200 JOULES, PATIENT REMAINS IN ASYSTOLE 180 CPR AND VENTILATION VIA AMBUBAG RESUMED, 4TH EPINEPHRINE 1 AMP ADMINSTERED 180 CPR AND VENTILATION PAUSED, NO PULSE, SHOCK DELIVERED TO PT AT 300 JOULES, NO PULSE INDICATED. CPR AND VENTILATION VIA AMBUBAG RESUMED 1807 MAGNESIUM 1 AMP ADMINISTERED VIA IVP WHILE CPR AND VENTILATION CONTINUES 180 D50 ADMINISTERED VIA IVP 1809 CPR AND VENTILATION PAUSED, PT ASSESSED AND SHOCK DELIVERED @ 300 JOULES. CAROTID PULSE FELT. CPR AND ARTIFICIAL VENTILATION VIA AMBUBAG RESUMED 1811 10 UNITS OF REGULAR INSULIN ADMINISTERED VIA IVP 181 VENTRICULAR TACHYCARDIA RHYTHM NOTED, PT CONTINUES TO RECEIVE CPR AND VENTILATION VIA AMBUBAG 181 CPR AND VENTILATION PAUSED, SHOCK DELIVERED AT 360 JOULES, NO PULSE NOTED, CPR AND ARTIFICIAL VENTILATION VIA AMBUBAG RESUMES 181 CPR AND VENTILATION PAUSED, NO PULSE ASSESSED, SHOCK DELIVERED @ 360 JOULES, BICARB ADMINISTERED VIA IVP, CPR AND ARTIFICIAL VENTILATION RESUMED 181 AMIODARONE BOLUS ADMINISTERED VIA IVP AND AMIODARONE DRIP BEGAN INFUSING, 5TH EPINEPHRINE ADMINISTERED VIA IVP, CPR AND VENTILATION VIA AMBUBAG CONTINUES 181 WIDE-COMPLEX RHYTHM NOTED ON GENERATING PLANT SUPERINTENDENT 182 CPR AND VENTILATION PAUSED, NO PULSE ASSESSED, CPR AND ARTIFICIAL VENTILATION RESUMED 182 CPR AND VENTILATION PAUSED, NO PULSE ASSESSED, CPR AND VENTILATION VIA AMBUBAG RESUMED 182 6TH EPINEPHRINE AMP ADMINISTERED VIA IVP 182 CPR AND VENTILATION PAUSED, NO PULSE INDICATED, CPR AND ARTIFICIAL VENTILATION VIA AMBUBAG RESUMED, SODIUM BICARBONATE ADMINISTERED VIA IVP 1824 CPR AND VENTILATION PAUSED, NO PULSE ASSESSED, CPR AND VENTILATION VIA AMBUBAG RESUMED 1831 CPR AND VENTILATION PAUSED, NO PULSE INDICATED. DR. DE LEON INSTRUCTED ALL LIFE SUPPORT EFFORTS TO CEASE AND PRONOUNCED THE PATIENT AT THIS TIME. 0 POST MORTEM CARE PROVIDED. 1929 NOTIFIED [facility] SELENE SHE WILL MAKE ARRANGEMENTS FOR TRANSPORT.
== END 2021-03-07 20:00 | disposition expired | DRG 207 ==
LOC: INF 13:19 → ICU 14:30 → MED/SURG 14:30 → PCU 02-26 02:25 → ICU 02-27 12:45
PROVIDERS: Internal Medicine; ADMIT Family Medicine; ATTEND Family Medicine
PROC: 5A1955Z Respiratory Ventilation, Greater than 96 Consecutive Hours (ICD-10-PCS; principal; 2021-02-27)
PROC: 0BH17EZ Insertion of Endotracheal Airway into Trachea, Via Natural or Artificial Opening (ICD-10-PCS; 2021-02-27)
PROC: 02HV33Z Insertion of Infusion Device into Superior Vena Cava, Percutaneous Approach (ICD-10-PCS; 2021-02-27)
PROC: B548ZZA Ultrasonography of Superior Vena Cava, Guidance (ICD-10-PCS; 2021-02-27)
DX: U07.1 COVID-19 (principal); J96.01 Acute respiratory failure with hypoxia; J12.82 Pneumonia due to coronavirus disease 2019; E87.0 Hyperosmolality and hypernatremia; B37.89 Other sites of candidiasis; E87.4 Mixed disorder of acid-base balance; N17.8 Other acute kidney failure; E78.49 Other hyperlipidemia; I73.89 Other specified peripheral vascular diseases; I25.10 Atherosclerotic heart disease of native coronary artery without angina pectoris; I10 Essential (primary) hypertension; I95.89 Other hypotension; E87.5 Hyperkalemia; I48.91 Unspecified atrial fibrillation
CPT/HCPCS: 31500; 36415; 36569; 36591; 36600; 80048; 80053; 81000; 82271; 82550; 82553; 82728; 82805; 83605; 83735; 83880; 83986; 84100; 84484; 85007; 85014; 85018; 85027; 86140; 86900; 86901; 87040; 87070; 87077; 87205; 93005; 94002; 94003; 94640; 94660; 94664; 94760; C1751; C1768; J0132; J0171; J0282; J0360; J0456; J0461; J1100; J1450; J1644; J1650; J1956; J2060; J2185; J2250; J2270; J3020; J3360; J3370; J3475; J3486; J3490; J7060; P9017; P9047